=== PATIENT | female | born 2000 ===

== ENCOUNTER 2023-04-10 13:28 | Emergency (ER) | payer BC ==
[2023-04-10] MEDS ORDERED: Ibuprofen 600 MG Tab PO ONE (14:47)
[2023-04-10] MEDS ORDERED: Acetaminophen/oxyCODONE 325-5 MG Tab PO ONE (14:47)
== END 2023-04-10 15:14 | disposition home or self-care (01) ==
LOC: MW.ED 13:28
DX: S89.91XA Unspecified injury of right lower leg, initial encounter (principal); Z79.899 Other long term (current) drug therapy; X50.1XXA Overexertion from prolonged static or awkward postures, initial encounter
CPT/HCPCS: 73562; 73610; 99283; A9270